=== PATIENT | male | born 1990 ===

== ENCOUNTER 2022-03-16 10:55 | Emergency (ER) | payer OTHER, SELFPAY ==
[2022-03-16 11:09] VITALS: BP 129/88; PULSE 94; RESP 16; TEMP 36.9; O2SAT 100
--- NOTE | 2022-03-16 11:30 | ED.SKABFB ---
HPI - Skin/Abscess/Foreign Bdy General Chief complaint: Skin/Abscess/Foreign Body Stated complaint: Rash Back of Neck Time Seen by Provider: 03/16/22 11:30 History of Present Illness HPI narrative: 31-year-old male who presents to [facility] care with complaints of 3-day history of red pustular rash to left posterior hairline and small area to left neck, states area is itchy and does burn. Patient has no drainage from site. area to left posterior hairline is 3.5cm X 2cm and he reports that it seems to of bubbled up more in the last day. Patient reports that area is painful especially when she showers. Patient denies any known fevers, chills. or sweats, denies any body aches or any other ill symptoms. MD complaint: rash Onset (ago): day(s) (3) Location: neck (left posterior hairline, and 0.5cm diameter area on left lateral neck) Severity scale (1-10): 3 Treatments prior to arrival: other (Neosporin) Related Data Allergies Allergy/AdvReac Type Severity Reaction Status Date / Time No Known Allergies Allergy Verified 03/16/22 11:25 Review of Systems Review of Systems: CONSTITUTIONAL: Denies fever, chills, or sweats. EYES: Denies visual changes, redness, or discharge. ENT: Denies rhinorrhea, congestion, sore throat, or otalgia. CARDIOVASCULAR: Denies chest pain, palpitations, or edema. RESPIRATORY: Denies cough or dyspnea. GASTROINTESTINAL: Denies abdominal pain, nausea, vomiting, or diarrhea. GENITOURINARY: Denies dysuria or hematuria. SKIN: Positive for rash left posterior hairline and on lateral neck with itching and burning. MUSCULOSKELETAL: Denies back pain, joint pain, or myalgia. NEUROLOGIC: Denies headache, numbness, or weakness. PSYCHIATRIC: Denies anxiety or depression. All systems reviewed & are unremarkable except as noted in HPI and below PMFSH Surgical History Surgical History (Updated 03/16/22 @ 20:47 by Cyn Ramos NP) H/O hernia repair Family History Family History (Updated 03/16/22 @ 20:47 by Cyn Ramos NP) Other Diabetes mellitus Hypertension Social History Social History (Updated 03/16/22 @ 20:47 by Cyn Ramos NP) Smoking status: Current some day smoker Alcohol intake: current Alcohol use details: social Substance use type: marijuana Last use: social Living arrangements: with family Gender identity (if verbalized by the patient): Male Comments At time of signature, agree with nursing past medical, surgical, social and family history. There is no relevant family history pertinent to the presenting complaint Exam Narrative: GENERAL: Well-appearing, well-nourished, and in no acute distress. HEAD: Normocephalic, atraumatic. EYES: PERRLA and EOMI. ENT: Nares clear, no rhinorrhea or epistaxis. Mucous membranes moist.TM's normal with good light reflex, throat pink with no lesions or exudates, no swelling noted NECK: Supple.no lymphadenopathy CHEST: Clear to auscultation. No respiratory distress.SAO2 100% on room air HEART: Regular rate and rhythm. No murmur heard. Normal peripheral pulses. ABDOMEN: Soft, nontender, nondistended, normal active bowel sounds. EXTREMITIES: Normal range of motion. No edema. SKIN: Warm, dry,3.5cm X 2cm area of red blistery lesions to posterior left hairline and .5cm area of blistery lesions to left lateral neck, area itchy and burning NEURO: No focal deficits. Alert and oriented x3. Course Course Level of Care: Express Care Visit Vital Signs Vital signs: Vital Signs Temperature 36.9 C 03/16/22 11:09 Pulse Rate 94 03/16/22 11:09 Respiratory Rate 16 03/16/22 11:09 Blood Pressure 129/88 03/16/22 11:09 Pulse Oximetry 100 03/16/22 11:09 Oxygen Delivery Room Air 03/16/22 11:09 Temperature 36.9 C 03/16/22 11:09 Pulse Rate 94 03/16/22 11:09 Respiratory Rate 16 03/16/22 11:09 Blood Pressure 129/88 03/16/22 11:09 Pulse Oximetry 100 03/16/22 11:09 Oxygen Delivery Room Air 03/16/22 11:09 M
== END 2022-03-16 11:48 | disposition home or self-care (01) ==
PROVIDERS: Emergency Provider Registered Nurse
DX: B02.9 Zoster without complications (principal)
CPT/HCPCS: 99213; G0463